=== PATIENT | male | born 1995 | race Caucasian/White ===

== ENCOUNTER 2017-03-23 19:51 | Emergency (ER) | payer OTHER ==
--- NOTE | 2017-03-23 21:33 | RADIOLOGY REPORT (SQ) ---
EXAM DESCRIPTION: KNEE LEFT 2 VIEWS COMPLETED DATE/TIME: 03/23/2017 9:26 pm REASON FOR STUDY: knee injury COMPARISON: None. NUMBER OF VIEWS: Two views. TECHNIQUE: AP and lateral radiographic images acquired of the left knee. LIMITATIONS: None. FINDINGS: MINERALIZATION: Normal. BONES: No acute fracture or dislocation. No worrisome bone lesions. JOINT: Small joint effusion. SOFT TISSUES: No soft tissue swelling. No radio-opaque foreign body. OTHER: No other significant finding. IMPRESSION: SMALL JOINT EFFUSION WITHOUT FRACTURE IDENTIFIED. TECHNICAL DOCUMENTATION: JOB ID: [id number] [employer]- All Rights Reserved
[2017-03-23] MEDS ORDERED: IBUPROFEN 600 MG TABLET PO ONE (22:00)
[2017-03-23] MEDS ORDERED: ACETAMINOPHEN 325 MG TABLET PO ONE (22:00)
--- NOTE | 2017-03-23 22:01 | ER Document Report ---
ED General - General Chief Complaint: Knee Injury Stated Complaint: LEFT KNEE PAIN Time Seen by Provider: 03/23/17 21:26 Notes: Patient is a 21 year old male who presents with left knee pain. Patient states that he was jumping at the trampoline park, landed onto the hard portion in between 2 trampolines directly on his left knee. He states that he had immediate onset of a severe, constant, throbbing pain to the left knee that has been constant since that time. Any attempt at moving or bearing weight on the knee worsens the pain. He has not tried anything to improve the pain. He has no history of similar injury in the past. He denies any additional injury to any other location. He has not seen his primary care doctor regarding today's concerns. TRAVEL OUTSIDE OF THE [place] IN LAST 30 DAYS: No - Related Data Allergies/Adverse Reactions: pineapple [Pineapple] Allergy (Severe, Verified 01/27/16 10:17) Anaphylaxis Past Medical History - General Information source: Patient - Social History Smoking Status: Never Smoker Frequency of alcohol use: None Drug Abuse: None Lives with: Spouse/Significant other Family History: Arthritis, CAD, CVA, Hyperlipidemia, Hypertension, Malignancy Patient has suicidal ideation: No Patient has homicidal ideation: No - Past Medical History Cardiac Medical History: Reports: Hx Hypertension Pulmonary Medical History: Reports: Hx Asthma Renal/ Medical History: Denies: Hx Peritoneal Dialysis Musculoskeltal Medical History: Reports Hx Musculoskeletal Trauma Psychiatric Medical History: Reports: Hx Attention Deficit Hyperactivity Disorder, Hx Bipolar Disorder Traumatic Medical History: Reports: Hx Fractures - Immunizations Immunizations up to date: Yes Hx Diphtheria, Pertussis, Tetanus Vaccination: No Review of Systems - Review of Systems Notes: Constitutional: Negative for fever. Eyes: Negative for visual changes. ENT: Negative for facial injury Cardiovascular: Negative for chest injury. Respiratory: Negative for shortness of breath. Gastrointestinal: Negative for abdominal injury. Genitourinary: Negative for genital injury Musculoskeletal: Positive for left knee injury Skin: Negative for laceration/abrasions. Neurological: Negative for head injury. Physical Exam - Vital signs Vitals: Temp Pulse Resp BP Pulse Ox 98.9 F 89 21 H 147/71 H 98 03/23/17 20:12 03/23/17 20:12 03/23/17 20:12 03/23/17 20:12 03/23/17 20:12 Interpretation: Hypertensive Notes: PHYSICAL EXAMINATION: GENERAL: Well-appearing but in moderate pain HEAD: Atraumatic, normocephalic. EYES: sclera anicteric, conjunctiva are normal. ENT: Moist mucous membranes. NECK: Normal range of motion LUNGS: Normal work of breathing HEART: 2+ DP pulses bilaterally EXTREMITIES: There is a joint effusion of the left knee most notable towards the medial aspect. Patient is able to perform full extension and flexion to 90 with pain. He is unable to bear weight on the extremity. No other extremity findings. NEUROLOGICAL: No focal neurological deficits. Moves all extremities spontaneously and on command. PSYCH: Normal mood, normal affect. SKIN: Warm, Dry, normal turgor, no rashes or lesions noted. Course - Re-evaluation Re-evalutation: 03/23/17 21:58 No evidence of a septic joint, gout flare, dislocation, or fracture on exam and imaging. Suspect a likely acute ligamentous injury given a joint effusion although patient has no anterior posterior laxity on exam. JANAK is greater than 0.9 taken at the bedside personally. Pressure in the lower extremity was 167 on 87 and was 136 on 82 in the upper extremity. At this time, I do not see an indication for labs or further imaging. At this time will discharge with return precautions and follow-up recommendations. Verbal discharge instructions given a the bedside and opportunity for questions given. Medication warnings reviewed. Patient is in agreement with this plan and has verbalized understanding of return precautions and the need for primary care follow-up in the next 24-72 hours. - Vital Signs Vital signs: Temp Pulse Resp BP Pulse Ox 98.8 F 88 18 137/83 H 97 03/23/17 22:48 03/23/17 22:48 03/23/17 22:48 03/23/17 22:48 03/23/17 22:48 - Diagnostic Test Radiology reviewed: Image reviewed, Reports reviewed Radiology results interpreted by me: 03/23/17 21:59 Left knee x-ray: Joint effusion without any acute fracture or dislocation. Discharge - Discharge Clinical Impression: Left knee injury Qualifiers: Encounter type: initial encounter Qualified Code(s): S89.92XA - Unspecified injury of left lower leg, initial encounter Condition: Good Disposition: HOME, SELF-CARE Additional Instructions: Your x-ray does not show any acute fracture today. You likely have a ligamentous strain. For your pain: Take ibuprofen 600 mg and acetaminophen 1000 mg every 6 hours together as needed for pain. Continue to apply ice to the area is much your able. Please follow-up with your orthopedic surgery for consideration of an MRI if you do not have improving your symptoms in the next 1 -2 weeks. Please return immediately if you develop weakness, numbness, spreading redness from the area, or any other symptoms that are concerning to you. Forms: Return to Work Referrals: MAXIMO LOPEZ MD [Primary Care Provider] - Follow up as needed SOILA PARRY MD [ACTIVE STAFF] - Follow up as needed
[2017-03-23 22:50] VITALS: BP 137/83
== END 2017-03-23 22:20 | disposition home or self-care (01) ==
LOC: ER 19:51
DX: S89.92XA Unspecified injury of left lower leg, initial encounter (principal); M25.462 Effusion, left knee; M25.562 Pain in left knee; X58.XXXA Exposure to other specified factors, initial encounter; Y93.44 Activity, trampolining
CPT/HCPCS: 99283; 73560; L1830

== ENCOUNTER → 2017-03-30 | Outpatient (CLI) | payer OTHER ==
--- NOTE | 2017-03-30 13:34 | RADIOLOGY REPORT (SQ) ---
EXAM DESCRIPTION: MRI LT LOWER JOINT WITHOUT COMPLETED DATE/TIME: 03/30/2017 11:59 am REASON FOR STUDY: SPRAIN OF ANTERIOR CRUCIATE LIGAMENT OF LEFT KNEE S83.512A SPRAIN OF ANTERIOR CRU CIATE LIGAMENT OF LEFT KNEE, COMPARISON: Left knee plain films 03/23/2017 TECHNIQUE: Leftknee images acquired and stored on PACS. Multiplanar images include fat sensitive se quences as T1, water sensitive sequences as FST2 or STIR, cartilage sensitive sequences as FSPD, and gradient echo sequences. LIMITATIONS: None. FINDINGS: JOINT AND BURSAE: A moderate-sized joint effusion is present with dependently layering hedy ris and fluid-debris level in the suprapatellar recess and Guerra's cyst likely related the hemorrhage into the joint space. Guerra's cyst 6 x 2 cm size. BONE CORTEX AND MARROW: There is a mildly depressed osteochondral fracture along the anterior weight- bearing surface lateral femoral condyle, best shown on sagittal image 21. This involves a 15 mm area of the articular surface with only about 2 to 3 mm of depression. Marrow edema without fracture dusty es or articular surface irregularity along the posterior aspect of the medial and lateral femoral con dyles, and proximal fibula at the proximal tibiofibular joint. ACL: Torn PCL: Intact. MCL: Intact. No periligamentous edema or fluid. LCL: Intact. No periligamentous edema or fluid. MEDIAL MENISCUS: No tears. No abnormal signal. LATERAL MENISCUS: No tears. No abnormal signal. MEDIAL COMPARTMENT: Cartilage preserved. No bone bruises or reactive marrow edema. No osteophytes. LATERAL COMPARTMENT: Articular cartilage preserved. Depressed osteochondral fracture weight-bearing surface lateral femoral condyle as above PATELLA: No chondromalacia. No subchondral cysts. Medial and lateral retinacula intact. EXTENSOR MECHANISM: Intact. Quadriceps and patella tendons normal. SOFT TISSUES: There is diffuse edema throughout the popliteus muscle from muscle strain. This is bes t shown on axial images 16-21 and coronal image 22. OTHER: No other significant finding. IMPRESSION: Torn anterior cruciate ligament Osteochondral depression, lateral femoral condyle Bone contusions in the posteromedial and lateral tibial plateaus. Bone contusion proximal fibula Popliteus muscle strain Joint effusion with fluid debris level from hemorrhage TECHNICAL DOCUMENTATION: JOB ID: [id number]- All Rights Reserved Reading location - IP[facility]workstation name: [email or web address]
== END ==
LOC: RAD 10:47
PROVIDERS: ATTEND Family Medicine
DX: S83.512A Sprain of anterior cruciate ligament of left knee, initial encounter (principal); X58.XXXA Exposure to other specified factors, initial encounter

== ENCOUNTER 2018-02-11 07:50 | Emergency (ER) | payer OTHER ==
[2018-02-11] MEDS ORDERED: LIDOCAINE 1% INJ-PF (10 MG/ML) 30 ML SDV INJ ONE (09:08)
--- NOTE | 2018-02-11 09:10 | ER Document Report ---
ED Skin Rash/Insect Bite/Abscs - General Mode of Arrival: Ambulatory Information source: Patient TRAVEL OUTSIDE OF THE [place] IN LAST 30 DAYS: No - General Chief Complaint: Abscess Stated Complaint: EAR SWELLING Time Seen by Provider: 02/11/18 09:00 Notes: 22-year-old male who presents to the emergency department today with complaints of an abscess to the posterior left ear. Patient states he had a small firm area in his left ear lobe "for a while" but the swelling, pain, and purulent drainage began last night. Patient states he used to be a 1 pack/day smoker for around a year but he has not smoked in a week. (CHRISTIANNE MCCORMICK) - Related Data Allergies/Adverse Reactions: pineapple [Pineapple] Allergy (Severe, Verified 02/11/18 07:55) Anaphylaxis No Known Drug Allergies Allergy (Verified 02/11/18 07:55) Past Medical History - Social History Smoking Status: Former Smoker Chew tobacco use (# tins/day): No Frequency of alcohol use: None Drug Abuse: Marijuana Family History: Arthritis, CAD, CVA, Hyperlipidemia, Hypertension, Malignancy Patient has suicidal ideation: No Patient has homicidal ideation: No - Past Medical History Cardiac Medical History: Reports: Hx Hypertension Pulmonary Medical History: Reports: Hx Asthma Renal/ Medical History: Denies: Hx Peritoneal Dialysis Musculoskeletal Medical History: Reports Hx Musculoskeletal Trauma Psychiatric Medical History: Reports: Hx Attention Deficit Hyperactivity Disorder, Hx Bipolar Disorder Traumatic Medical History: Reports: Hx Fractures - Immunizations Immunizations up to date: Yes Hx Diphtheria, Pertussis, Tetanus Vaccination: No Review of Systems - Review of Systems Constitutional: No symptoms reported EENT: No symptoms reported Cardiovascular: No symptoms reported Respiratory: No symptoms reported Gastrointestinal: No symptoms reported Genitourinary: No symptoms reported Male Genitourinary: No symptoms reported Musculoskeletal: No symptoms reported Skin: See HPI, Other - abscess to left posterior ear Hematologic/Lymphatic: No symptoms reported Neurological/Psychological: No symptoms reported -: Yes All other systems reviewed and negative Physical Exam - Vital signs Vitals: Temp Pulse Resp BP Pulse Ox 98.1 F 84 18 150/84 H 97 02/11/18 08:04 02/11/18 08:04 02/11/18 08:04 02/11/18 08:04 02/11/18 08:04 - Notes Notes: Physical Exam: General: Alert, appears well. HEENT: Normocephalic. Atraumatic. PERRL. Extraocular movements intact. Oropharynx clear. Neck: Supple. Non-tender. Respiratory: No respiratory distress. Wheezing and rhonchi with forced cough. Cardiovascular: Regular rate and rhythm. Abdominal: Normal Inspection. Non-tender. No distension. Normal Bowel Sounds. Back: Non-tender. No deformity or step off. Extremities: Moves all four extremities. Upper extremities: Normal inspection. Normal ROM. Lower extremities: Normal inspection. No edema. Normal ROM. Neurological: Normal cognition. AAOx4. Normal speech. Psychological: Normal affect. Normal Mood. Skin: There is a slightly tender cystic mass to the right earlobe. Left ear and earlobe are grossly swollen, there is pointing posteriorly to the left ear with erythema consistent with abscess. (CHRISTIANNE MCCORMICK) Course - Re-evaluation Re-evalutation: 02/11/18 09:48 Procedure: The left posterior earlobe was prepped with Shur-Clens. The skin was anesthetized with 1 mL of 1% lidocaine subcutaneously. The abscessed area was incised with a #11 blade. Infected sebaceous cyst contents were expressed. The cystic donato were grasped with mosquito clamp, and dissected out of the wound. Wound was irrigated with 10 mL's of normal saline. The wound was packed with quarter-inch iodoform gauze. A culture was obtained of the liquefied sebaceous material that was released. (FRAN OSBORNE) - Vital Signs Vital signs: Temp Pulse Resp BP Pulse Ox 98.1 F 84 18 150/84 H 97 02/11/18 08:04 02/11/18 08:04 02/11/18 08:04 02/11/18 08:04 02/11/18 08:04 Discharge - Discharge Clinical Impression: Abscess of left earlobe, Infected sebaceous cyst Disposition: HOME, SELF-CARE Additional Instructions: Abscess You have an abscess (boil). This a pus-forming infection, usually due to staph. Some boils may be left to drain on their own, but most require lancing. From the time the tender lump first appears, it may be three or four days before the abscess is ready to gunjan. Local heat and rest help at this stage of treatment. An antibiotic may prevent spread of the infection. Once the abscess is opened, packing may be placed into it. This is done so pus is not sealed inside by premature closure of the cavity. The packing will be removed at your follow-up visit or you may be advised to remove it yourself at home. Sometimes this packing must be replaced a few times during healing. The wound will heal with surprisingly little scar. Depending on the size and location of an abscess, healing can take one to four weeks. You may shower and wash the area around the incision site two or three times a day. Antibiotics may be prescribed, but are usually not necessary after an abscess has been drained. If you develop fever, chilling, worsening pain, or increasing swelling in the area, call the doctor or return immediately. Take the medication as prescribed. Remove the gauze packing in 2 days, then try to keep the wound open by probing it with a Q-tip dipped in peroxide several times daily. Follow-up with a local medical doctor or ear nose and throat doctor if not improving. RETURN TO THE EMERGENCY ROOM IF ANY NEW OR WORSENING SYMPTOMS. Prescriptions: Cephalexin Monohydrate [Keflex 500 mg Capsule] 500 mg PO QID #20 capsule Scribe Attestation: 02/11/18 09:27 I personally performed the services described in the documentation, reviewed and edited the documentation which was dictated to the scribe in my presence, and it accurately records my words and actions. (FRAN OSBORNE) [email or web address] Documentation - Scribe Written by Livia:: Livia Martell, 02/11/2018 1000 acting as scribe for :: Awilda
[2018-02-11 09:59] VITALS: BP 129/80
== END 2018-02-11 09:59 | disposition home or self-care (01) ==
LOC: ER 07:50
DX: H60.02 Abscess of left external ear (principal); L72.3 Sebaceous cyst; I10 Essential (primary) hypertension
CPT/HCPCS: 99283; 69000; J3490